=== PATIENT | female | born 1985 | race Caucasian/White ===

== ENCOUNTER → 2020-05-27 17:20 | Outpatient (CLI) | payer OTHER, SELFPAY ==
[2020-05-27 14:57] VITALS: BMI 23.6
[2020-06-01 16:18] LABS: HPV APTIMA, High Risk Negative (Negative)
== END ==
PROVIDERS: Referring Provider Obstetrics & Gynecology; Visit Provider Obstetrics & Gynecology
DX: Z12.4 Encounter for screening for malignant neoplasm of cervix (principal)
CPT/HCPCS: 87624; 88175; G0145

== ENCOUNTER → 2023-09-27 | Outpatient (CLI) | payer OTHER, SELFPAY ==
[2023-09-27 12:57] LABS: Absolute Lymphocyte Count 1.72 X10^3/uL (0.83-4.51); Absolute Neutrophil Count 7.5 X10^3/uL (2.0-7.7); Basophil# 0.06 X10^3/uL; Basophil% 0.6 % (0-1); Eosinophil# 0.12 X10^3/uL; Eosinophils% 1.2 % (0-5); Hematocrit 44.2 % (37-47); Hemoglobin 14.8 g/dL (12.0-15.0); Lymphocyte # 1.72 X10^3/ul (0.83-4.51); Lymphocyte % 17.4 % (19-41); Mean Corp Hgb Conc 33.5 g/dL (32-36); Mean Corpuscular Hgb 29.4 pg (27.0-32.0); Mean Corpuscular Volume 87.9 fL (81-99); Mean Platelet Vol. 9.6 fl (6.2-12.0); Monocyte# 0.46 X10^3/uL; Monocyte% 4.7 % (0-10); NRBC Flagged by Analyzer 0 % (0-5); Neutrophil # 7.51 X10^3/uL (2.7-7.7); Neutrophil % 75.9 % (47-70); Platelet Count 387 K/mm3 (150-450); RBC Distribution Width CV 12.9 % (11.6-14.6); RBC Distribution Width SD 41.4 fl (35.1-43.9); Red Blood Count 5.03 M/mm3 (4.2-5.4); White Blood Count 9.9 K/mm3 (4.4-11.0)
[2023-09-27 13:32] LABS: Cholesterol 189 mg/dL (200); Glucose 90 mg/dL (74-106); High Density Lipoprotein 112 mg/dL; Thyroid Stim Hormone (TSH) 0.72 uIU/mL (0.358-3.74); Triglycerides 110 mg/dL; Very Low Density Lipoprotein 22 mg/dL (5-40)
== END | disposition home or self-care (01) ==
PROVIDERS: Referring Provider Advanced Practice Midwife; Visit Provider Advanced Practice Midwife
DX: Z01.419 Encounter for gynecological examination (general) (routine) without abnormal findings (principal); Z13.29 Encounter for screening for other suspected endocrine disorder; Z13.220 Encounter for screening for lipoid disorders
CPT/HCPCS: 36415; 80061; 82947; 84443; 85025

== ENCOUNTER → 2025-04-12 | Outpatient (CLI) | payer OTHER, SELFPAY ==
[2025-04-16 12:09] LABS: HPV APTIMA, High Risk Negative (Negative)
== END | disposition home or self-care (01) ==
LOC: BWCLAB 11:23
PROVIDERS: Visit Provider Nurse Practitioner Family
DX: Z12.4 Encounter for screening for malignant neoplasm of cervix (principal); R53.83 Other fatigue
CPT/HCPCS: 36415; 84403; 84439; 87624; 88175; G0145

== ENCOUNTER → 2025-05-01 | Outpatient (CLI) | payer OTHER, SELFPAY ==
--- NOTE | 2025-05-01 17:04 | BI_ITS ---
EXAM: SCRN MAMM (CAD)W/[place] BILAT DATE: 05/01/2025 CLINICAL HISTORY: F, Age 39 y/o , SCREENING TECHNIQUE: SCRN MAMM (CAD)W/[place] BILAT COMPARISON: None available FINDINGS: TISSUE DENSITY: The breasts are extremely dense, which lowers the sensitivity of mammography. Bilateral Breast Mammographic Findings: No suspicious masses, calcifications or other abnormalities are identified. BI/SCRN MAMM (CAD)W/[place] BILAT IMPRESSION: No mammographic evidence of malignancy in either breast OVERALL FINAL ASSESSMENT BI-RADS 1: NEGATIVE. RECOMMENDATION: Routine annual follow-up in 1 Year A letter with findings and recommendations will be mailed to the patient. Reading Location: [id number]
--- OUTSIDE RECORDS SUMMARY | 2025-05-02 07:27 | XMS RPT_ITS | CCD ---
Author Organization [facility] Inform ion Partnership [facility] Care Team Providers Care Composing Machine Operator Name Role Phone Unavailable Primary Care Provider Unavailabl e SELF Referring Unavailable Care Physician, No Primary Primary Care Provider Unavailable Care Physician, No Primary Referring Provider Un available Bill PHILLIPS-CRegina Attending Provider [phone] Care Physician, No Primary Primary Care Unava ilable Care Physician, No Primary Referring Unava ilRegina Whiting Attending Unavailable Care Physician, No Primary Primary Care Unava ilable Regina Khan Attending Unavailable Regina Khan Referring Unavailable Care Physician, No Primary Primary Care Unava ilRegina Whiting Attending Unavailable Medications Current Medications Medication Drug Class(es) Dates Sig (Normalized) Sig (Original) [id number] actuat albuterol 0.09 mg/actuat metered dose inhaler (2 sources) beta2-Adrenergic Agonist Start: 11-06-2016 take 2 puff(s) by inhalation every four hours as needed for wheezing albuterol HFA (PROAIR HFA) 90 mcg/actuation inhaler Indications: Sinobronchitis Inhale 2 Puffs as instructed every 4 hours as needed for Wheezing/Shortness of Breath. 1 Inhaler 0 11/06/2016 Active Comment on above: Inhale 2 Puffs as in structed every 4 hours as needed for Wheezing/Shortness of Breath. Ascorbic Acid-Elderberry Fruit (Airborne (Elderberry)) 100-50 mg tablet,chewable (3 sources) Start: 12-18-2022 Ascorbic Acid-Elderberry Fruit (Airborne (Elderberry)) 100-50 mg tablet,chewable Active {tbl} PO December 18, 2022 12:00am Start: 12-18-2022 Ascorbic Acid- Elderberry Fruit (Airborne (Elderberry)) 100-50 mg tablet,chewable Active TABLET PO December 17, 2022 11:00pm benzonatate 100 mg oral capsule (2 sources) Non-narcotic Antitussive Start: 11-06-2016 take 2 capsules by mouth three times daily as needed benzonatate (TESSALON PERLE) 100 mg capsule Indications: Sinobronchitis Take 2 capsules by mouth three times daily as needed. 30 capsule 0 11/06/2016 Active Comment on above: Take 2 capsules by m outh three times daily as needed. cephalexin 500 mg oral capsule (1 source) Cephalosporin Antibacterial Start: 12-02-2023 End: 12-07-2023 take 1 capsule by mouth four times daily cephALEXin (KEFLEX) 500 mg capsule Indications: Cellulitis of hand, left Take 1 capsule by mouth four times daily for 5 days. 20 capsule 0 12/02/2023 12/07/2023 Active Comment on above: Take 1 capsule by mo ut four times daily for 5 days. Drospirenone-E.Es tradiol-Lm.Fa (20 sources) Progestin, Estrogen Start: 04-10-2025 Drospirenone-E.Estr adiol-Lm.Fa 3-0.02-0.451 mg (24) (4) tablet Active 0 .ROUTE .COMPLEX 84 3 April 10, 2025 7:33am TAKE 1 TABLET DAILY Start: 03-28-2024 End: 04-10-2025 Drospirenone-E.Estradiol-Lm. Fa 3-0.02-0.451 mg (24) (4) tablet Discontinued 0 .ROUTE .COMPLEX 84 3 March 28, 2024 3:03pm April 10, 2025 7:34am TAKE 1 TABLET DAILY Start: 02-28-2024 End: 03-28-2024 Drospirenone-E.Estradiol-Lm. Fa 3-0.02-0.451 mg (24) (4) tablet Discontinued 0 .ROUTE .COMPLEX 84 February 28, 2024 10:23am March 28, 2024 3:03pm TAKE 1 TABLET DAILY Start: 02-25-2023 End: 02-28-2024 Drospirenone-E.Estradiol-Lm. Fa 3-0.02-0.451 mg (24) (4) tablet Discontinued 0 .ROUTE .COMPLEX 84 February 25, 2023 8:12am February 28, 2024 10:23am TAKE 1 TABLET DAILY Start: 02-25-2023 Drospirenone-E .Estradiol-Lm.Fa Active 0 .ROUTE .COMPLEX 84 February 25, 2023 7:12am TAKE 1 TABLET DAILY Start: 12-01-2022 End: 02-25-2023 Drospirenone-E.Estradiol-Lm. Fa 3-0.02-0.451 mg (24) (4) tablet Discontinued 0 .ROUTE .COMPLEX 84 0 December 01, 2022 6:48am February 25, 2023 8:12am TAKE 1 TABLET DAILY Start: 12-01-2022 End: 02-25-2023 Drospirenone-E.Estradiol-Lm. Fa Discontinued 0 .ROUTE .COMPLEX 84 December 01, 2022 5:48am February 25, 2023 7:12am TAKE 1 TABLET DAILY Start: 09-23-2021 End: 12-01-2022 Drospirenone-E.Estradiol-Lm. Fa 3-0.02-0.451 mg (24) (4) tablet Discontinued 0 .ROUTE .COMPLEX 84 September 23, 2021 4:45pm December 01, 2022 6:48am TAKE 1 TABLET DAILY Start: 09-23-2021 End: 12-01-2022 Drospirenone-E.Estradiol-Lm. Fa Discontinued 0 .ROUTE .COMPLEX 84 September 23, 2021 3:45pm December 01, 2022 5:48am TAKE 1 TABLET DAILY Start: 07-01-2021 End: 09-23-2021 Drospirenone-E.Estradiol-Lm. Fa 3-0.02-0.451 mg (24) (4) tablet Discontinued 0 .ROUTE .COMPLEX 84 July 01, 2021 3:37pm September 23, 2021 4:46pm TAKE 1 TABLET DAILY Start: 07-01-2021 End: 09-23-2021 Drospirenone-E.Estradiol-Lm. Fa Discontinued 0 .ROUTE .COMPLEX 84 July 01, 2021 2:37pm September 23, 2021 3:46pm TAKE 1 TABLET DAILY Start: 07-16-2020 End: 07-01-2021 Drospirenone-E.Estradiol-Lm. Fa 3-0.02-0.451 mg (24) (4) tablet Discontinued 0 .ROUTE .COMPLEX 84 July 16, 2020 9:22am July 01, 2021 3:37pm TAKE 1 TABLET DAILY Start: 07-16-2020 End: 07-01-2021 Drospirenone-E.Estradiol-Lm. Fa Discontinued 0 .ROUTE .COMPLEX 84 July 16, 2020 8:22am July 01, 2021 2:37pm TAKE 1 TABLET DAILY Start: 02-01-2020 End: 07-16-2020 Drospirenone-E.Estradiol-Lm. Fa 3-0.02-0.451 mg (24) (4) tablet Discontinued 0 .ROUTE .COMPLEX 84 February 01, 2020 8:15am July 16, 2020 9:22am TAKE 1 TABLET DAILY Start: 02-01-2020 End: 07-16-2020 Drospirenone-E.Estradiol-Lm. Fa Discontinued 0 .ROUTE .COMPLEX 84 February 01, 2020 7:15am July 16, 2020 8:22am TAKE 1 TABLET DAILY Start: 09-04-2019 End: 02-01-2020 Drospirenone-E.Estradiol-Lm. Fa 3-0.02-0.451 mg (24) (4) tablet Discontinued 1 {tbl} PO DAILY 84 September 04, 2019 1:24pm February 01, 2020 8:15am Start: 09-04-2019 End: 02-01-2020 take 1 tablet by mouth once daily Drospirenone-E.Estradiol-Lm.Fa Discontin ued 1 TABLET PO DAILY September 04, 2019 12:24pm February 01, 2020 7:15am Start: 03-31-2019 End: 09-04-2019 Drospirenone-E.Estradiol-Lm. Fa 3-0.02-0.451 mg (24) (4) tablet Discontinued 0 .ROUTE .COMPLEX 84 March 31, 2019 9:37am September 04, 2019 1:25pm TAKE 1 TABLET DAILY Start: 03-31-2019 End: 09-04-2019 Drospirenone-E.Estradiol-Lm. Fa Discontinued 0 .ROUTE .COMPLEX 84 March 31, 2019 8:37am September 04, 2019 12:25pm TAKE 1 TABLET DAILY Start: 12-26-2018 End: 03-31-2019 Drospirenone-E.Estradiol-Lm. Fa (Beyaz) 3-0.02-0.451 mg (24) (4) tablet Discontinued 1 {tbl} PO DAILY 84 3 December 26, 2018 10:11am March 31, 2019 9:38am Start: 12-26-2018 End: 03-31-2019 Drospirenone-E.Estradiol-Lm. Fa (Beyaz) 3-0.02-0.451 mg (24) (4) tablet Discontinued 1 TABLET PO DAILY 84 December 26, 2018 9:11am March 31, 2019 8:38am Start: 07-21-2018 End: 12-26-2018 Drospirenone-E.Estradiol-Lm. Fa (Beyaz) 3-0.02-0.451 mg (24) (4) tablet Discontinued 1 {tbl} PO DAILY 84 1 July 21, 2018 1:00am December 26, 2018 10:11am Start: 07-21-2018 End: 12-26-2018 Drospirenone-E.Estradiol-Lm. Fa (Beyaz) 3-0.02-0.451 mg (24) (4) tablet Discontinued 1 TABLET PO DAILY 84 July 21, 2018 12:00am December 26, 2018 9:11am Start: 10-13-2016 drospirenone-e .estradiol-lm.FA 3-0.02-0.451 mg (24) (4) tab Multivitamin preparation (1 source) Start: 09-23-2021 take 1 tablet by mouth once daily Multivitamin Active 1 TABLET PO DAILY September 23, 2021 12:00am Multivitamin tablet (2 sources) Start: 09-23-2021 Multivitamin t ablet Active 1 {tbl} PO DAILY September 23, 2021 1:00am predniSONE 10 mg oral tablet (1 source) Start: 03-04-2024 End: 03-17-2024 take 6 tablets by mouth once daily, then take 4 tablets by mouth once daily, then take 3 tablets by mouth once daily, then take 2 tablets by mouth once daily, then take 1 tablet by mouth once daily predniSONE (DELTASONE) 10 mg tablet Indications: Dermatitis Take 6 tablets by mouth once daily for 1 day, THEN 4 tablets once daily for 3 days, THEN 3 tablets once daily for 3 days, THEN 2 tablets once daily for 3 days, THEN 1 tablet once daily for 3 days. 36 tablet 0 03/04/2024 03/17/2024 Active triamcinolone acetonide 1 mg/ml topical cream (1 source) Corticosteroid Start: 03-04-2024 triamcinolone acetonide (KENALOG) 0.1 % cream Indications: Dermatitis Apply to affected area two times a day as needed. 80 g 0 03/04/2024 Active Problems Problem Classification Problem Date Documented Da te Episodic/Chronic Allergic reactions (1 source) Inflammatory dermatosis; Translations: [Dermatitis, unspecified] 03-04-2024 Episodic Malaise and fatigue (1 source) Other fatigue; Translations: [Other fatigue] Onset: 04-12-2025 Episodic Other screening for suspected conditions (not mental disorders or infectious disease) (3 sources) Encounter for screening mammogram for malignant neoplasm of breast; Translations: [Encounter for screening for malignant neoplasm of cervix] Onset: 04-12-2025 Episodic Skin and subcutaneous tissue infections (1 source) Cellulitis of left hand; Translations: [Cellulitis of left upper limb] 12-02-2023 Episodic Results Test Name Value Interpretation Reference Range Facility PAP IG HPV APTIMA 16/18,45on 04-16-2025 ADEQ Comment Normal . [facility] Comment on above: Order Comment: Speci men Comment: [id number] Specimen Comment: No. of containers..01 ThinPrep Vial Result Comment: Sati sfactory for evaluation. No endocervical component is identified. Performed By: #### L 7400.0280 #### [facility] [address] [place], [address] COMM . Normal . [facility] Comment on above: Order Comment: Speci men Comment: [id number] Specimen Comment: No. of containers..01 ThinPrep Vial Performed By: #### L 7400.0280 #### [facility] [address] [place], [place], [id number] COMMENT Comment Normal . [facility] Comment on above: Order Comment: Speci men Comment: [id number] Specimen Comment: No. of containers..01 ThinPrep Vial Result Comment: This liquid based ThinPrep(R) pap test was screened with the use of an image guided system. Performed By: #### L 7400.0280 #### [facility] [address] [place], [place], [id number] DIAG Comment Normal . [facility] Comment on above: Order Comment: Speci men Comment: [id number] Specimen Comment: No. of containers..01 ThinPrep Vial Result Comment: NEGA TIVE FOR INTRAEPITHELIAL LESION OR MALIGNANCY. Performed By: #### L 7400.0280 #### [facility] [address] [place], [address] HPV APTIMA, HR Negative Normal Negative [facility] Comment on above: Order Comment: Speci men Comment: [id number] Specimen Comment: No. of containers..01 ThinPrep Vial Result Comment: This nucleic acid amplification test detects fourteen high- risk HPV types (16,18,31,33,35,39,45,51,52,56,58,59,66,68) without differentiation. Performed By: #### L 7400.0280 #### [facility] [address] [place], [place], [id number] HPV Yamini Rfx Comment Normal . [facility] Comment on above: Order Comment: Speci men Comment: [id number] Specimen Comment: No. of containers..01 ThinPrep Vial Result Comment: Crit eria not met, HPV Genotype not performed. Performed at: - [facility] [id number] Ict Managers: Bárbara Woods MD, Phone: [phone] Performed at: =G - [facility] [address] [id number] Ict Managers: Bárbara Wodos MD, Phone: [phone] Performed By: #### L 7400.0280 #### [facility] [address] [place], [place], [address] PAPSMR Comment Normal . [facility] Comment on above: Order Comment: Speci men Comment: [id number] Specimen Comment: No. of containers..01 ThinPrep Vial Result Comment: The Pap smear is a screening test designed to aid in the detection of premalignant and malignant conditions of the uterine cervix. It is not a diagnostic procedure and should not be used as the sole means of detecting cervical cancer. Both false-positive and false-negative reports do occur. Performed By: #### L 7400.0280 #### [facility] [address] [place], [place], [id number] PERFORM Comment Normal . [facility] Comment on above: Order Comment: Speci men Comment: [id number] Specimen Comment: No. of containers..01 ThinPrep Vial Result Comment: Max Mcnair, Dermatology Technician (ASCP) Performed By: #### L 7400.0280 #### [facility] [address] [place], [place], [id number] Cervical or vaginal specimen microscopic examination by liquid based cytology (reportOrdered By: eRgina Khan on 04-12-2025 Cytology report Cyto stain.thin prep Doc (Cvx/Vag) Comment . [facility] Comment on above: Criteria not met, HP V Genotype not performed.Performed at: [address] [id number] Director: Bárbara Woods MD, Phone: [phone] at: =[address] [id number] Director: Bárbara Woods MD, Phone: [phone] Cervical or vagninal specime n microscopic examination by cytology stain (reported asOrdered By: Regina Khan on 04-12-2025 Cytology report Cyto stain Doc (Cvx/Vag) Comment . [facility] Comment on above: The Pap smear is a s creening test designed to aid in thedetection of premalignant and malignant conditions of theuterine cervix. It is not a diagnostic procedure andshould not be used as the sole means of detecting cervicalcancer. Both false-positive and false-negative reports dooccur. Detection in cervical specim en of any of human papilloma virus (HPV) 16, 18, 31, 33,Ordered By: Regina Khan on 04-12-2025 HPV 16+18+31+33+35+39+45+51 +52+56+58+59+66+68 DNA Probe+sig amp Ql (Cvx) Negative Negative [facility] Comment on above: This nucleic acid am plification test detects fourteen high-risk HPV types (16,18,31,33,35,39,45,51,52,56,58,59,66,68)without differentiation. L509.3001on 04-12-2025 Testosterone [Mass/Vol] 10.40 ng/dL Normal [facility] Comment on above: Performed By: #### L 509.3001, L506.0400 #### [facility] [address] [place], [address] Laboratory - Chemistry and C hemistry - challengeOrdered By: Regina Khan on 04-12-2025 Testosterone [Mass/Vol] 10.40 ng/dL [facility] - CytologyOrdered By: Regina Khan on 04-12-2025 Dermatology Technician Cyto stain Nom (Cvx/Vag) [ID] Comment . [facility] Comment on above: Leandro Mcnair Cytolog ist (ASCP) Laboratory - Miscellaneous t estsOrdered By: Regina Khan on 04-12-2025 Service comment (Unsp spec) [Interp] . . [facility] No Panel InformationOrdered By: Regina Khan on 04-12-2025 Pap Smear Specimen Adequacy Comment . [facility] Comment on above: Satisfactory for deb luation. No endocervical component is identified. 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 Developer Required: No Is patient in pain?: No Allergies No Known Allergies Allergy (Verified 04/12/25 10:50) Medications ???Medication ???Instructions ???Recorded ???Confirmed ???Type multivitamin 1 tab PO DAILY 09/23/21 04/12/25 H istory ascorbic acid 100 mg-elderberry tab PO 12/18/22 04/12/25 History fruit 50 mg chewable tablet (Airborne (elderberry)) drospiren-e.estrad-l .mefol 3 See Rx Instructions .Route 5 04/12/25 Rx mg-0.02 mg-0.451 mg(24)/0.451 .COMPLEX #84 tabs mg(4)tablet Is last menstrual period known: Yes Last Menstrual Period: 04/02/25 Post menopausal: No Patient : No : No Control Method: ocp PFSH Family History Unknown Colon cancer Kidney disease Grandfather Diabetes Social History Smoking Status: Never smoker alcohol intake: never substance use type: does not use caffeine: Yes what type of physical activity do you participate in: walking and aerobics frequency: 1-2 times per week seatbelt use: always do you feel safe at home: Yes additional social history: [employer]- Student 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 She reports no issues or concerns. She is utilizing OCP an doing well with this. Would like to continue. She is interested in testosterone testing. Her mother is going through testing as well and they were questioning a genetic component. Otherwise asymptomatic. Last PAP: 2019; normal. HPV neg. History of abnormal PAP: no Last mammogram: due History of abnormal mammogram: n/a Colon cancer screening: age 44 Other preventative health care screenings: no PCP Female Reproductive History Last Menstrual Period: 04/02/25 Cycle Length: 21-35 Bleeding Duration: 3 Questions: metrorrhagia: No, sexually active: Yes, dyspareunia: No and PCB: No ROS Const Constitutional: Denies chills, fatigue, fever(s), headache(s) or weight loss Eyes Eyes: Denies change in vision ENT ENT: Denies dizziness Cardio Card: Denies chest pain at rest or palpitations Resp Resp: Denies cough or dyspnea GI GI: Denies abdominal pain, constipation or nausea : Denies difficulty voiding, dysuria, hematuria, nipple discharge, pelvic pain, prolapse symptoms, urinary incontinence, vaginal discharge, vaginal dryness, vaginal odor or vaginal pruritus Skin Skin/Breast: Denies alopecia, rash, breast mass, breast pain, breast skin changes or nipple discharge Neuro Neuro: Denies dizziness Psych Psych: Denies anxiety or depression Endo Endo: Denies cold intolerance, excessive sweating or heat intolerance Exam Const General: cooperative, healthy appearing, no acute distress and well developed Orientation: alert, oriented to person and oriented to place HENCO Head: normal to inspection Neck Neck: normal visual inspection Thyroid: thyroid normal Lymphatic: no lymphadenopathy noted Chest Breast inspection: normal inspection of the breasts and normal inspection of the axillae Breast palpation: normal palpation of the breasts, normal palpation of the axillae and no axillary lymphadenopathy Resp Effort Inspection: normal respiratory effort GI Palpation: soft, no masses and nontender Rectal Exam: deferred External Female Exam: normal external appearance and normal appearance of the urethra Urethra: normal appearance of the urethra and normal palpation Speculum Exam - Vagina: normal appearance of the vagina and normal vaginal discharge Speculum Exam - Cervix: normal appearance of the cervix Bimanual Exam- Vagina Uterus: normal bimanual exam, uterine size normal, uterine shape normal and non-tender Bimanual Exam- Adnexa, other: normal adnexae, no masses, normal and non-tender Pelvic Support: normal Neuro General: patient alert and patient oriented x3 Psych Affect: normal affect Coding Level of Care Code Established Pt Off vis,est,prev 40-64yrs Patient Type Established Dana (more content not included)... Normal [facility] T4 Free Directon 04-12-2025 T4 FREE DIRECT 1.00 ng/dL Normal 0.76-1.46 [facility] Comment on above: Performed By: #### L 509.3001, L506.0400 #### [facility] [address] [place], [address] CNOVon 03-04-2024 CNOV Office Visit ([facility]) MIRZA GARCIA ([id number]) 1985 F Date Time Provider Department 03/04/24 8:50 AM YESSI JACOBSON During your visit today, we recorded the following information about you: Pulse Respiration Blood pressure Weight 65/minute 16/minute 151/87 63.5 kg Yessi Jacobson, MANAGER CHILD.PROOF OPERATOR 03/04/2024 9:34 AM Signed [facility] PATIENT INFO CONTACT DERMATITIS OVERVIEW Dermatitis is defined as an inflammation of the skin. Contact dermatitis refers to dermatitis that is caused by contact between the skin and a substance. The substance can be an allergen (a substance that provokes an allergic reaction) or an irritant (a substance that damages the skin). Irritants are responsible for about 80 percent of cases of contact dermatitis. In most cases, self-care measures and drug therapy can control the symptoms and prevent complications of contact dermatitis. IRRITANT CONTACT DERMATITIS Irritant contact dermatitis occurs when the skin comes in direct contact with a substance that physically, mechanically, or chemically irritates the skin, causing the normal skin barrier to be disrupted. Cause -- The most common causes of irritant dermatitis are products used on a daily basis, including soap, cleansers, and rubbing alcohol. People with other skin conditions, dry skin, and light-colored or fair skin are at greatest risk, although anyone can develop irritant dermatitis. Symptoms -- Mild irritants cause redness, dryness, fissures (small cracks), and itching. Strong irritants may cause swelling, oozing, tenderness, or blisters. The hands are commonly affected, often between the fingers. Irritant dermatitis can also affect the face, especially the thin skin of the eyelids. Diagnosis -- The diagnosis of irritant contact dermatitis is usually based upon a person's history and physical examination. In some cases, a patch test (applying a small amount of a substance to the skin) may be recommended to determine if the dermatitis is allergic or irritant-type. Patch testing should be done by a solar installation crew supervisor or efficiency manager who is trained in this procedure. Treatment -- The goal of treatment of irritant contact dermatitis is to restore the normal skin barrier and protect the skin from future injury. Reducing exposure to known irritants is essential. In some cases, simply reducing the use of soap and using an emollient cream or ointment completely alleviates symptoms. Wearing gloves when working with irritants may help as well. In more severe cases, topical corticosteroids (steroids) may be recommended. Steroid creams and ointments are available in a variety of strengths (potencies); the least potent are available in the [place] without a prescription (eg, hydrocortisone 1 percent cream). More potent formulations require a prescription. Steroid treatments for contact dermatitis are most effective when applied and covered with a barrier, such as plastic wrap, a dressing (eg, Telfa), cotton gloves, or petroleum jelly. Oral steroids (eg, prednisone) may be used briefly to treat severe dermatitis, but are not recommended for long-term treatment of irritant contact dermatitis. ALLERGIC CONTACT DERMATITIS Allergic contact dermatitis occurs when the skin comes in direct contact with an allergen. This activates the body's immune system, which triggers inflammation. Allergic contact dermatitis can occur after being exposed to a new product or after using a product for months or years. Common allergens -- Poison vielka, poison oak, and poison sumac contain an oil called urushiol, which is the most common cause of allergic contact dermatitis. Ginkgo fruit and the skin of mangos also contain urushiol and can cause allergic contact dermatitis. Other common allergens include nickel in jewelry, perfumes and cosmetics, components of rubber, nail honduran, and chemicals in shoes (both leather and synthetic). Allergic contact dermatitis can also be triggered by certain medications, including hydrocortisone cream, antibiotic creams (eg, Neosporin?, Bacitracin?), benzocaine, and thimerosal. Laundry detergents are an uncommon cause of allergic contact dermatitis. Symptoms -- Symptoms include intense itching and a red raised rash. The rash is usually limited to areas that were in direct contact with the allergen, but a rash can appear in other areas of the body, if the allergen was transferred to those areas on a person's hands. Washing the allergen away with soap and water can usually prevent this spread. The rash typically appears within 12 to 48 hours of exposure to the allergen, although in some cases it may not appear for up to two weeks. Less commonly, the rash persists for months or years, which makes it difficult to identify the cause of the reaction. Diagnosis -- The diagnosis of allergic contact dermatitis i (more content not included)... Normal [facility] CNOVon 12-02-2023 CNOV Office Visit (ERIC) MIRZA GARCIA ([id number]) 1985 F Date Time Provider Department 12/02/23 5:30 PM MEGHANN LUNDBERG During your visit today, we recorded the following information about you: Temperature Pulse Respiration Blood pressure 98.5 degrees 74/minute 16/minute 122/70 Weight Height 64.9 kg 1.651 m Meghann Lundberg PA-C 12/02/2023 5:51 PM Signed Subjective Mirza Ross Jose is a 38 year old female with no significant past medical history who presents [facility] today for evaluation of a red spot on the left side of her hand that she noticed yesterday. She states that it has been getting significantly larger and tender. She states that it feels warm. She denies any injury or trauma. Review of Systems Constitutional: Negative for chills, diaphoresis and fever. Skin: Positive for wound (left hand red spot). All other systems reviewed and are negative. Objective Ht 165.1 cm (5' 5) Wt 64.9 kg (143 lb 1.3 oz) LMP 10/06/2016 BMI 23.81 kg/m? Physical Exam Vitals reviewed. Constitutional: General: She is not in acute distress. Appearance: Normal appearance. She is normal weight. She is not ill-appearing or toxic-appearing. Comments: The patient appears to be non-toxic, in no acute distress, and resting comfortably on the table. HENT: Head: Normocephalic and atraumatic. Eyes: Extraocular Movements: Extraocular movements intact. Musculoskeletal: General: Normal range of motion. Cervical back: Normal range of motion. Skin: General: Skin is warm and dry. Findings: Erythema (3 cm x 2 cm area on the medial left hand with central 1 cm x 1 cm darker, mildly indurated area) present. No rash. Neurological: General: No focal deficit present. Mental Status: She is alert and oriented to person, place, and time. Mental status is at baseline. Psychiatric: Mood and Affect: Mood normal. Behavior: Behavior normal. Thought Content: Thought content normal. Assessment and Plan Examination of the left hand reveals a 3 cm x 2 cm area on the medial left hand with a central 1 cm x 1 cm darker, mildly indurated area. There is mild tenderness. No fluctuance. No drainage. Exam is concerning for cellulitis. Patient counseled regarding suspected diagnosis and given prescription for Keflex. Advised to follow-up with primary care as needed for any new or worsening symptoms. ASSESSMENT/PLAN: 1. Cellulitis of hand, left - ICD9: 682.4, ICD10: L03.114 - CEPHALEXIN 500 MG CAPSULE Medical Decision Making: Problems: Low: Acute, uncomplicated illness or injury Risk: Minimal: Minimal risk from testing/treatment Moderate: Drug management Medical Decision Making Level: 3 - Low I spent a total of 20 minutes on the date of the service which included preparing to see the patient, [id number] patient care, completing clinical documentation, performing a medically appropriate examination, counseling and educating the patient/family/careg iver, and ordering medications, tests, or procedures. JESUS Wakefield Ariana P, PA-C 12/02/2023 5:45 PM Signed [facility] PATIENT INFO SKIN INFECTION OVERVIEW Cellulitis is an infection of the skin and soft tissue of the skin. The infection is usually caused by bacteria that normally live on the skin, such as staphylococci (Staph) or streptococci (Strep). The infection develops when there is a break in the skin, such as a wound or injury, which may be minor. This allows bacteria to enter the skin and grow, causing infection and swelling. Most cases of cellulitis are mild and heal completely with antibiotic treatment. However, the infection can become severe and cause a bodywide infection if left untreated. It is important to seek medical care promptly if you could have a skin infection. SKIN INFECTION RISK FACTORS Certain conditions increase the risk of developing cellulitis. These include: Recent injury to the skin (a wound, abrasion, cut, recent shaving, or injection drug use) Swelling of the skin due to radiation therapy Current skin infection, such as athlete's foot or impetigo Accumulation of fluid (edema) due to poor circulation, heart failure, liver disease, or past surgery to remove lymph nodes Being overweight Chronic skin conditions, such as eczema or psoriasis However, cellulitis can also develop in people who have no known risk factors. SKIN INFECTION SYMPTOMS Cellulitis -- The most common symptom of cellulitis is pain or tenderness. Other cellulitis symptoms can include swelling, warmth, and redness in a distinct area of skin. These symptoms usually worsen and the redness may expand over the course of a few days. The skin is usually smooth and shiny rather than raised or bumpy. Fever and chills are not common. The most common areas of the body for cellulitis to develop include the legs an (more content not included)... Normal [facility] Absolute lymphocyte countOrd ered By: Abigail Ardon on 09-27-2023 Lymphocytes Auto (Unsp spec) [#/Vol] 1.72 10*3/uL 0.83-4.51 [facility] Basophil percentageOrdered B y: Abigail Ardon on 09-27-2023 Basophils/100 WBC (Bld) 0.6 % 0-1 [facility] Cholesterol [Mass/Vol] 189 mg/dL <200 [facility] Comment on above: <200 mg/dL Desirable 200-240 mg/dL Borderline >240 mg/dL High Risk Eosinophils/100 WBC (Bld) 1.2 % 0-5 [facility] Glucose [Mass/Vol] 90 mg/dL 74-106 [facility] Neutrophils (Bld) [#/Vol] 7.5 10*3/uL 2.0-7.7 [facility] Neutrophils/100 WBC (Bld) 75.9 % 47-70 [facility] Triglyceride [Mass/Vol] 110 mg/dL <199 [facility] Comment on above: The drugs N-Acetylcy steine and Metamizole may falsely depress this assay.Serum Triglycerides Reference Interval Normal <150 mg/dL Borderline high 150 - 199 mg/dL High 200 - 499 mg/dL Very High > or = 500 mg/dL WBC (Bld) [#/Vol] 9.9 10*3/uL 4.4-11.0 [facility] Blood erythrocytes count (nu mber/volume)Ordered By: Abigail Ardon on 09-27-2023 RBC (Bld) [#/Vol] 5.03 10*6/uL 4.2-5.4 [facility] Blood hemoglobin measurement (mass/volume)Ordered By: Abigail Ardon on 09-27-2023 Hemoglobin (Bld) [Mass/Vol] 14.8 g/dL 12.0-15.0 [facility] Blood lymphocytes/100 leukoc ytesOrdered By: Abigail Ardon on 09-27-2023 Lymphocytes/100 WBC (Bld) 17.4 % 19-41 [facility] Blood monocytes/100 leukocyt esOrdered By: Abigail Ardon on 09-27-2023 Monocytes/100 WBC (Bld) 4.7 % 0-10 [facility] Blood platelet mean volumeOr dered By: Abigail Ardon on 09-27-2023 Platelet mean volume (Bld) [Entitic vol] 9.6 fL 6.2-12.0 [facility] Determination of erythrocyte mean corpuscular volume (MCV)Ordered By: Abigail Ardon on 09-27-2023 MCV (RBC) [Entitic vol] 87.9 fL 81-99 [facility] Hematocrit Auto (Bld) [Volum e fraction]Ordered By: Abigail Ardon on 09-27-2023 Hematocrit (Bld) [Volume fraction] 44.2 % 37-47 [facility] - Hematology and Cell countsOrdered By: Abigail Ardon on 09-27-2023 Erythrocyte distribution width (RBC) [Entitic vol] 41.4 fL 35.1-43.9 [facility] Erythrocyte distribution width (RBC) [Ratio] 12.9 % 11.6-14.6 [facility] Immature granulocytes/100 WBC (Bld) 0.200 % 0.0-0.9 [facility] Comment on above: IG% - Immature Granu locytes (promyelocytes, myelocytes and metamyelocytes) > 1% indicates that a LEFT SHIFT is Present. MCH (RBC) [Entitic mass] 29.4 pg 27.0-32.0 [facility] Nucleated RBC/100 WBC (Bld) [Ratio] 0 % 0-5 [facility] MCHC Auto (RBC) [Mass/Vol]Or dered By: Abigail Ardon on 09-27-2023 MCHC (RBC) [Mass/Vol] 33.5 g/dL 32-36 [facility] No Panel InformationOrdered By: Abigail Ardon on 09-27-2023 Thyroid Stimulating Hormone (TSH) 0.72 uIU/mL 0.358-3.74 [facility] Platelets bldOrdered By: Roberto Ardon on 09-27-2023 Platelets (Bld) [#/Vol] 387 10*3/uL 150-450 [facility] Serum or plasma cholesterol in HDL measurement (mass/volume)Ordered By: Abigail Ardon on 09-27-2023 Cholesterol in HDL [Mass/Vol] 112 mg/dL >40 [facility] Comment on above: The drugs N-Acetylcy steine and Metamizole may falsely depress this assay. Reference Range HDL <40 mg/dL Low HDL Cholesterol HDL >or= 60 mg/dL High HDL Cholesterol Serum or plasma cholesterol in VLDL measurement (mass/volume)Ordered By: Abigail Ardon on 09-27-2023 Cholesterol in VLDL [Mass/Vol] 22 mg/dL 5-40 [facility] Serum or plasma low density lipoprotein (LDL) cholesterol measurement (mass/volume)Ordered By: Abigail Ardon on 09-27-2023 Cholesterol in LDL [Mass/Vol] 55 mg/dL 0-130 [facility] Vital Signs Date Time Vital Sign Value Performing Clinician Facility 04-12-2025 10:48-0400 Body height 165.1 cm No Primary Care Physician [facility] 04-12-2025 10:48-0400 Body mass index (BMI) [Ratio] 23.7 kg/m2 No Primary Care Physician [facility] 04-12-2025 10:48-0400 Body weight 64.63 kg No Primary Care Physician [facility] 04-12-2025 10:48-0400 Diastolic blood pressure 88 mm[Hg] No Primary Care Physician [facility] 04-12-2025 10:48-0400 Systolic blood pressure 135 mm[Hg] No Primary Care Physician [facility] 03-04-2024 09:09-0400 Body mass index (BMI) [Ratio] 23.28 kg/m2 Yessi Jacobson APRN.PROOF OPERATOR Work Phone: [facility] 03-04-2024 09:09-0400 Body weight 63.45 kg Yessi Jacobson APRN.PROOF OPERATOR Work Phone: [facility] 03-04-2024 09:09-0400 Diastolic blood pressure 87 mm[Hg] Yessi Jacobson APRN.PROOF OPERATOR Work Phone: [facility] 03-04-2024 09:09-0400 Heart rate 65 /min Yessi Jacobson APRN.PROOF OPERATOR Work Phone: [facility] 03-04-2024 09:09-0400 Respiratory rate 16 /min Yessi Jacobson APRN.PROOF OPERATOR Work Phone: [facility] 03-04-2024 09:09-0400 SaO2% (BldA) [Mass fraction] 100 % Yessi Jacobson APRN.PROOF OPERATOR Work Phone: [facility] 03-04-2024 09:09-0400 Systolic blood pressure 151 mm[Hg] Yessi Jacobson MANAGER CHILD.PROOF OPERATOR Work Phone: [facility] 12-02-2023 17:30-0400 Body height 165.1 cm Meghann Lundberg PA-C Work Phone: [facility] 12-02-2023 17:30-0400 Body temperature 98.49 [degF] Meghann Lundberg PA-C Work Phone: [facility] 12-02-2023 17:30-0400 Body weight 64.9 kg Meghann Lundberg PA-C Work Phone: [facility] 12-02-2023 17:30-0400 Diastolic blood pressure 70 mm[Hg] Meghann Wormald PA-C Work Phone: [facility] 12-02-2023 17:30-0400 Heart rate 74 /min Meghann Wormald PA-C Work Phone: [facility] 12-02-2023 17:30-0400 Respiratory rate 16 /min Meghann Wormald PA-C Work Phone: [facility] 12-02-2023 17:30-0400 SaO2% (BldA) [Mass fraction] 97 % Meghann Wormald PA-C Work Phone: [facility] 12-02-2023 17:30-0400 Systolic blood pressure 122 mm[Hg] Meghann Wormald PA-C Work Phone: [facility] Encounters Encounter Date Encounter Type Care Provider Facility Start: 05-01-2025 ambulatory Regina Khan Facility :[facility] Start: 04-12-2025 Encounter for gynecological examination (general) (routine) [facility] Start: 04-12-2025 End: 04-12-2025 Patient encounter procedure Regina HARRISC -[facility] Work Phone: Start: 04-12-2025 End: 04-12-2025 ambulatory No Primary Care Physician -[facility] Start: 04-12-2025 End: 04-12-2025 ambulatory No Primary Care Physician Facility:[facility] Start: 03-04-2024 End: 03-04-2024 ambulatory Facility:[facility] Start: 03-04-2024 End: 03-04-2024 Patient encounter procedure Yessi Jacobson APRN.CNP Work Phone: [facility] Comment on above: Dermatitis (Primary Dx) Start: 12-02-2023 End: 12-02-2023 ambulatory SELF Facility:[facility] Start: 12-02-2023 End: 12-02-2023 Patient encounter procedure Meghann Augustin Wormald PA-C Work Phone: [facility] Comment on above: Cellulitis of hand, left (Primary Dx) Start: 09-27-2023 End: 09-27-2023 ambulatory [facility] Work Phone: Start: 09-27-2023 End: 09-27-2023 Patient encounter procedure [facility] Start: 12-18-2022 Patient encounter procedure [facility] Procedures Date Procedure Procedure Detail Performing Clinician Start: 04-12-2025 Liquid based cervica l cytology screening No Primary Care Physician Comment on above: NEGATIVE FOR INTRAEP ITHELIAL LESION OR MALIGNANCY. This liquid based Th inPrep(R) pap test was screened withthe use of an image guided system. Plan of Treatment Date Care Activity Detail Author Start: 07-26-2031 Urine microalbumin profile DTaP,Tdap,Td Vaccine (2 - Td or Tdap) [facility] Start: 04-12-2025 T4 free measurement [facility] Start: 04-12-2025 [facility] Start: 05-14-2024 Influenza vaccination Influenz a Vaccine (Season Ended) [facility] Start: 09-13-2023 Behavioral Health Screening Behavioral Health Screening [facility] Start: 09-13-2023 Depression Assessment Depression Ass essment [facility] Start: 05-14-2023 Covid-19 Vaccine ( season) Covid-19 Vaccine ( season) [facility] Start: 05-14-2023 Influenza vaccination Influenza Vacc ine (#1) [facility] Start: 2014 Screening for malign ant neoplasm of cervix HPV Testing [facility] Start: 2005 Screening for malign ant neoplasm of cervix [facility] Start: 2003 Hepatitis B Vaccine (1 of 3 - 19+ 3-dose series) Hepatitis B Vaccine (1 of 3 - 19+ 3-dose series) [facility] Start: 2002 Hepatitis C screening Hepatitis C Sc reening [facility] Start: 2002 HIV screening HIV Screening [facility] Liquid based cervica l cytology screening [facility] MG Breast - bilatera l Screening [facility] Payers Date Payer Category Payer Self-pay [id number] 2019 Unknown MMO MMO [employer] PPO [id number] 2019-Present [phone] [address] [place] [address] PPO [id number] 2019 Unknown [id number] Unknown MED [employer] [place] [id number] Unknown [id number] Unknown [id number] Unknown [id number] Social History Date Type Detail Facility Start: 12-18-2022 Tobacco smoking stat us MIIS Unknown if ever smoked [facility] Start: 1985 Sex Assigned At Female [facility] Start: 11-06-2016 End: 03-19-2025 Tobacco smoking status NHIS Never smoked tobacco [facility] Start: 11-06-2016 Tobacco use and exposure Smokeless tobacco non-user [facility] Start: 11-06-2016 Alcohol intake Current non-dr fisher oyster of alcohol (finding) [facility] Start: 1985 Sex Assigned At Not on file [facility] Gender identity Not on file [facility] inic Clinical Notes 12-02-2023 to 04-12-2025 Note Date & Type Note Facility 04-12-2025 Evaluation note Diagnosis Onset Date Resolution Women's annual routine gynecological examination acute April 12, 2025 10:46am [facility] Work Phone: [phone] 412-957807-31-2025 [facility] [address] [place] [address], [address] [place] [address] OFFICE VISIT Date of Service: 04/12/25 MR#: [id number] Acct: [id number] Name: MIRZA GARCIA Rep #: [id number] : 1985 Provider: GILSON Khan Age/Sex: 39/F [place] [facility] Status: Signed Intake Vital Signs 03/28/24 14:58 03/19/25 08:43 04/12/25 10:48 Height 5 ft 5 in 5 ft 5 in 5 ft 5 in Weight: 142 lb 8 oz BMI 23.7 BP 135/88 H 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) Api Developer Required: No Is patient in pain?: No Allergies No Known Allergies Allergy (Verified 04/12/25 10:50) Medications ?Medication ?Instructions ?Recorded ?Confirmed ?Type multivitamin 1 tab PO DAILY 09/23/2103/15 History ascorbic acid 100 mg-elderberry tab PO 12/18/22 History fruit 50 mg chewable tablet (Airborne (elderberry)) drospiren-e.estrad-l.mefol 3 See Rx Instructions .Rout e 04/10/25 04/12/25 Rx mg-0.02 mg-0.451 mg(24)/0.451 .COMPLEX #84 tabs mg(4)tablet Is last menstrual period known: Yes Last Menstrual Period: 04/02/25 Post menopausal: No Patient : No : No Control Method: ocp PFSH Family History Unknown Colon cancer Kidney disease Grandfather Diabetes Social History Smoking Status: Never smoker alcohol intake: never substance use type: does not use caffeine: Yes what type of physical activity do you participate in: walking and aerobics frequency: 1-2 times per week seatbelt use: always do you feel safe at home: Yes additional social history: [employer]- Student 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 She reports no issuesor concerns. She isutilizing OCP an doing well with this. Would like to continue. She is interested in testosterone testing. Her mother is going throughtesting as well and they were questioning a genetic component. Otherwise asymptomatic. Last PAP: 2019; normal. HPV neg. History of abnormal PAP: no Last mammogram: due History of abnormal mammogram: n/a Colon cancer screening: age 44 Other preventative health care screenings: no PCP Female Reproductive History Last Menstrual Period: 04/02/25 Cycle Length: 21-35 Bleeding Duration: 3 Questions: metrorrhagia: No, sexually active: Yes, dyspareunia: No and PCB: No ROS Const Constitutional: Denies chills, fatigue, fever(s), headache(s) or weight loss Eyes Eyes: Denies change in vision ENT ENT: Denies dizziness Cardio Card: Denies chest pain at rest or palpitations Resp Resp: Denies cough or dyspnea GI GI: Denies abdominal pain, constipation or nausea : Denies difficulty voiding, dysuria, hematuria, nipple discharge, pelvic pain, prolapse symptoms, urinary incontinence, vaginal discharge, vaginal dryness, vaginal odor or vaginal pruritus Skin Skin/Breast: Denies alopecia, rash, breast mass, breast pain, breast skin changes or nipple discharge Neuro Neuro: Denies dizziness Psych Psych: Denies anxiety or depression Endo Endo: Denies cold intolerance, excessive sweating or heat intolerance Exam Const General: cooperative, healthy appearing, no acute distress and well developed Orientation: alert, oriented to person and oriented to place [facility] Head: normal to inspection Neck Neck: normal visual inspection Thyroid: thyroid normal Lymphatic: no lymphadenopathy noted Chest Breast inspection: normal inspection of the breasts and normal inspection of theaxillae Breast palpation: normal palpation of the breasts, normal palpation of the axillae and no axillary lymphadenopathy Resp Effort & Inspection: normal respiratory effort GI Palpation: soft, no masses and nontender Rectal Exam: deferred External Female Exam: normal external appearance and normal appearance of the urethra Urethra: normal appearance of the urethra and normal palpation Speculum Exam - Vagina: normal appearance of the vagina and normal vaginal discharge Speculum Exam - Cervix: normal appearance of the cervix Bimanual Exam- Vagina & Uterus: normal bimanual exam, uterine size normal, uterine shape normaland non-tender Bimanual Exam- Adnexa, other: normal adnexae, no masses, normal and non-tender Pelvic Support: normal Neuro General: patient alert and patient oriented x3 Psych Affect: normal affect Coding Level of Care Code Established Pt Off vis,est,prev 40-64yrs Patient Type Established Diagnoses Women's annual routine gynecological examination Z01.419 Assessment and Plan Assessment and Plan (1) Women's annual routine gynecological examination: Status: Acute Plan: Breast and pelvic exam complete. PAP due: completed today. Mammogram due: orders placed to obtain Advised self breast exams monthly. Contraception: OCP. Refills sent 04/10/25. Advised incorporating healthy dietary choices such as increase in lean meats, fruits/vegetables, less processed food/sat fat/trans fats. Increase exercise to 30 minutes per day/5 days a week. This can include both weight bearing exercisesand/or brisk walking. Follow up with PCP for further preventative health screenings. Orders placed to have testosterone checked. Call with results. 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 Call office sooner with questions or concerns. Orders: Orders PAP IG HPV APTIMA 16/18,45 Today Z12.4 - Encounter for screening for malignant neoplasm of cervix SCRN MAMM (CAD)W/[place] [facility] Today Z12.31 - Encounter for screening mammogram for malignant neoplasmof breast 04/12/25 1119 n MONEY LAUNDERING INVESTIGATOR-C> Date _ Regina Khan MONEY LAUNDERING INVESTIGATOR-C Cosigner Signature: Date (if applicable) CC: ~ [facility]06-22-2024 NoteHNO ID: [id number] Author: YESSI JACOBSON APRN.PROOF OPERATOR Service: ? Author Type: Nurse Practitioner Type: Progress Notes Filed: 03/04/2024 12:36 Note Text: This note was created using NoteWriter. Subjective Mirza Garcia is a 38 year old female. Patient presents with blisters on bilateral arms and neck for 2 days Complains of intense itching Review of Systems Constitutional: Negative for chills and fever. Objective BP 151/87 Pulse 65 Resp 16 Wt 63.5 kg (139 lb 14.1 oz) LMP 10/06/2016 SpO2 100% BMI 23.28 kg/m? Physical Exam Constitutional: General: She is not in acute distress. Appearance: Normal appearance. She is not toxic-appearing. Skin: Findings: Rash present. Neurological: Mental Status: She is alert. Assessment and Plan ASSESSMENT/PLAN: 1. Dermatitis - ICD9: 692.9, ICD10: L30.9 - Oral Steriod tx -Prednisone taper - Topical steriod tx with Rx for steriod cream/ointment- see orders - Anti itch therapy of antihistamine recommended prn - discussed skin care of rash - follow up if symptoms persist or worsen. - PREDNISONE 10 MG TABLET - TRIAMCINOLONE ACETONIDE 0.1 % TOPICAL CREAM [facility] Jacobson [facility]N.[facility] History of Present illness Narrative* Yessi Jacobson APRN.CNP - 03/04/2024 12:32 PM EDT Images from the original note were not included. This note was created using Medlanes. Subjective Mirza Garcia is a 38 year old female. Patient presents with blisters on bilateral arms and neck for 2 days Complains of intense itching Review of Systems Constitutional: Negative for chills and fever. Objective BP 151/87 Pulse 65 Resp 16 Wt 63.5 kg (139 lb 14.1 oz) LMP 10/06/2016 SpO2 100% BMI 23.28 kg/m Physical Exam Constitutional: General: She is not in acute distress. Appearance: Normal appearance. She is not toxic-appearing. Skin: Findings: Rash present. Neurological: Mental Status: She is alert. Assessment and Plan ASSESSMENT/PLAN: 1. Dermatitis - ICD9: 692.9, ICD10: L30.9 - Oral Steriod tx -Prednisone taper - Topical steriod tx with Rx for steriod cream/ointment- see orders - Anti itch therapy of antihistamine recommended prn - discussed skin care of rash - follow up if symptoms persist or worsen. - PREDNISONE 10 MG TABLET - TRIAMCINOLONE ACETONIDE 0.1 % TOPICAL CREAM Yessi Jacobson APRN.PROOF OPERATOR documented in this encounterNor[facility]06-[facility]24 Instructions* Patient Instructions* Yessi Jacobson APRN.CNP - 03/04/2024 9:34 AM EDT [facility] PATIENT INFO CONTACT DERMATITIS OVERVIEW Dermatitis is defined as an inflammation of the skin. Contact dermatitis refers to dermatitis that is caused by contact between the skin and a substance. The substance can be an allergen (a substancethat provokes an allergic reaction) or an irritant (a substance that damages the skin). Irritants are responsible for about 80 percent of cases of contact dermatitis. In most cases, self-care measures and drug therapy can control the symptoms and prevent complications of contact dermatitis. IRRITANT CONTACT DERMATITIS Irritant contact dermatitis occurs when the skin comes in direct contact with a substance that physically, mechanically, or chemically irritates the skin, causing the normal skin barrier to be disrupted. Cause -- The most common causes of irritant dermatitis are products used on a daily basis, including soap, cleansers, and rubbing alcohol. People with other skin conditions, dry skin, and light-colored or fair skin are at greatest risk, although anyone can develop irritant dermatitis. Symptoms -- Mild irritants cause redness, dryness, fissures (small cracks), and itching. Strong irritants may cause swelling, oozing, tenderness, or blisters. The hands are commonly affected, often between the fingers. Irritant dermatitis can also affect the face, especially the thin skin of the eyelids. Diagnosis -- The diagnosis of irritant contact dermatitis is usually based upon a person's history and physical examination. In some cases, a patch test (applying a small amount of a substance to theskin) may be recommended to determine if the dermatitis is allergic or irritant-type. Patch testingshould be done by a solar installation crew supervisor or efficiency manager who is trained in this procedure. Treatment -- The goal of treatment of irritant contact dermatitis is to restore the normal skin barrier and protect the skin from future injury. Reducing exposure to known irritants is essential. In some cases, simply reducing the use of soap and using an emollient cream or ointment completely alleviates symptoms. Wearing gloves when working with irritants may help as well. In more severe cases, topical corticosteroids (steroids) may be recommended. Steroid creams and ointments are available in a variety of strengths (potencies); the least potent are available in the [place] without a prescription (eg, hydrocortisone 1 percent cream). More potent formulations req uire a prescription. Steroid treatments for contact dermatitis are most effective when applied and covered with a barrier, such as plastic wrap, a dressing (eg, Telfa), cotton gloves, or petroleum jelly. Oral steroids (eg, prednisone) may be used briefly to treat severe dermatitis, but are not recommended for long-termtreatment of irritant contact dermatitis. ALLERGIC CONTACT DERMATITIS Allergic contact dermatitis occurs when the skin comes in direct contact with an allergen. This activates the body's immune system, which triggers inflammation. Allergic contact dermatitis can occur after being exposed to a new product or after using a product for months or years. Common allergens -- Poison vielka, poison oak, and poison sumac contain an oil called urushiol, which is the most common cause of allergic contact dermatitis. Ginkgo fruit and the skin of mangos also contain urushiol and can cause allergic contact dermatitis. Other common allergens include nickel in jewelry, perfumes and cosmetics, components of rubber, nail honduran, and chemicals in shoes (both leather and synthetic). Allergic contact dermatitis can also be triggered by certain medications, including hydrocortisone cream, antibiotic creams (eg, Neosporin , Bacitracin ), benzocaine, and thimerosal. Laundry detergents are an uncommon cause of allergic contact dermatitis. Symptoms -- Symptoms include intense itching and a red raised rash. The rash is usually limited to areas that were in direct contact with the allergen, but a rash can appear in other areas of the body, if the allergen was transferred to those areas on a person's hands. Washing the allergen away with soap and water can usually prevent this spread. The rash typically appears within 12 to 48 hours of exposure to the allergen, although in some cases it may not appear for up to two weeks. Less commonly, the rash persists for months or years, whichmakes it difficult to identify the cause of the reaction. Diagnosis -- The diagnosis of allergic contact dermatitis is based upon a person's history and physical examination. If symptoms improve after the allergen is eliminated, this supports the diagnosis.Patch testing may be recommended in some cases and is usually performed by a solar installation crew supervisor or allerg ist. Treatment -- Allergic contact dermatitis usually resolves within two to four weeks after the allergen is eliminated, although it can take more time in some cases. Several measures can minimize symptoms during this time and help to control symptoms in people who have chronic allergic contact dermatitis. Whenever possible, identify and stop all exposure to the allergen. Oatmeal baths or soothing lotions such as calamine lotion can provide relief in mild cases. Topical antihistamines (eg, Benadryl cream) may be effective in some people. Topical corticosteroids (steroids) may be recommended for people with mild to moderate symptoms. Steroid creams and ointments are available in a variety of strengths (potencies); the least potent areavailable in the [place] without a prescription (eg, hydrocortisone 1 percent cream). More potent formulations require a prescription. For people with more bothersome symptoms, wet or damp dressings are recommended, especially when the affected area is oozing fluid and crusting. Such dressings are soothing and relieve itching, reduce redness, gently remove crusts, and prevent additional injury from scratching. A damp cotton garment (the garment is soaked with water and then wrung out) is worn over the affected area and covered with a dry garment. As an example, for an adult with allergic contact dermatitisof the legs, wet long underwear can be covered with larger dry long underwear. Adults may prefer toapply wet dressings at night. When used during the day, wet dressings should be changed every eight hours. Infants and toddlers with extensive skin involvement can wear wet pajamas covered by a dry pair of pajamas or a sleep sack. In people with severe dermatitis, a short course of oral steroids (eg, prednisone) may be recommended to get symptoms under control. LATEX DERMATITIS Latex is a fluid produced by rubber trees that is processed into a variety of products, including gloves, balloons, and condoms. In some individuals, exposure to these products and others (such as rubber bands, erasers, feeding nipples, pacifiers) can cause a contact dermatitis that is either an irritant or allergic reaction. Less commonly, a person can develop a potentially life-threatening allergic reaction to latex. Irritant dermatitis -- Irritant dermatitis usually occurs on the hands of people who wear latex or other rubber gloves; the latex acts as an irritant and the gloves trap moisture against the skin. The skin dries out when the gloves are removed, leading to the dermatitis. The symptoms of irritant rubber or latex dermatitis include redness and itching on the skin. There may also be dryness and cracking. Symptoms usually occur within 12 to 36 hours of touching a latex product. Treatment involves avoiding use of any latex-containing products. Latex allergy -- Latex can trigger allergic contact dermatitis. The skin reaction caused by a latexallergy does not differ significantly from that of irritant latex dermatitis. Other manifestations of latex allergy include urticaria (hives) immediately after contact with latex at the site of contact and a severe allergic reaction, which causes swelling, sneezing, and wheezing. Rarely, anaphylaxis can occur, which causes life-threatening difficulty with breathing. Diagnosis -- In most cases, the diagnosis of latex allergy is based upon a person's history of exposure. People with a severe latex allergy may immediately develop hives, nasal symptoms, swelling, or wheezing after latex exposure. These individuals may need to see a solar installation crew supervisor or efficiency manager for specialized skin patch tests and blood testing to verify the latex allergy. Treatment -- The primary treatment for latex allergy is to avoid all latex- containing products. Non-latex examination gloves are widely available, and use of glove liners may also be an effective approach. Natural membrane (sometimes called sheep skin) condoms may be used in place of latex condoms, and are effective for preventing . However, natural membrane condoms do not protect against sexually transmitted diseases such as HIV, gonorrhea, and chlamydia. People with a serious latex allergy should wear a bracelet, necklace, or similar alert tag at all times. If a reaction occurs and the person is too ill to explain their condition, this will help responders provide the proper care as quickly as possible. This measure is especially important in children. The alert tag should include a list of known allergies, as well as the name and phone number ofan emergency contact. People with a latex allergy should inform their doctors, dentists, and other healthcare providers about their allergy. Some patients are advised to carry an anaphylaxis kit (containing epinephrine that can be injected under the skin) as a precautionary measure. documented in this encounterNor[facility]03-21-2024 Instructions* Patient Instructions* Meghann Lundberg PA-C - 12/02/2023 5:45 PM EDT [facility] PATIENT INFO SKIN INFECTION OVERVIEW Cellulitis is an infection of the skin and soft tissue of the skin. The infection is usually causedby bacteria that normally live on the skin, such as staphylococci (Staph) or streptococci (Strep). The infection develops when there is a break in the skin, such as a wound or injury, which may be minor. This allows bacteria to enter the skin and grow, causing infection and swelling. Most cases of cellulitis are mild and heal completely with antibiotic treatment. However, the infection can become severe and cause a bodywide infection if left untreated. It is important to seek medical care promptly if you could have a skin infection. SKIN INFECTION RISK FACTORS Certain conditions increase the risk of developing cellulitis. These include: Recent injury to the skin (a wound, abrasion, cut, recent shaving, or injection drug use) Swelling of the skin due to radiation therapy Current skin infection, such as athlete's foot or impetigo Accumulation of fluid (edema) due to poor circulation, heart failure, liver disease, or past surgery to remove lymph nodes Being overweight Chronic skin conditions, such as eczema or psoriasis However, cellulitis can also develop in people who have no known risk factors. SKIN INFECTION SYMPTOMS Cellulitis -- The most common symptom of cellulitis is pain or tenderness. Other cellulitis symptoms can include swelling, warmth, and redness in a distinct area of skin. These symptoms usually worsen and the redness may expand over the course of a few days. The skin is usually smooth and shiny rather than raised or bumpy. Fever and chills are not common. The most common areas of the body for cellulitis to develop include the legs and the arms; it can also develop around the eye, on the abdominal wall, in the mouth, and around the anus. Other skin infections -- Other types of skin infections include abscesses, furuncles (boils), andcarbuncles. These usually cause a collection of pus under the skin. Skin that is raised, reddened, tender, and pus-filled may be caused by a skin infection known as methicillin-resistant Staphylococcus aureus (MRSA). DO I NEED TO BE EXAMINED? There are many types and causes of skin infections, and it is important to know the most likely cause of the infection before beginning treatment. Using the wrong treatment could allow the infection to worsen. To ensure that the correct treatment is used, it is important to be evaluated by a healthcare provider. SKIN INFECTION TREATMENT Cellulitis treatment includes antibiotics as well as treatment of any underlying condition that ledto the skin infection. Elevate the area -- Elevating the arm or leg above the level of the heart can help to reduce swelling and speed healing. Keep the area clean and dry -- It is important to keep the infected area clean and dry. You can shower or bathe normally, and pat the area dry with a clean towel. You can use a bandage or gauze to protect the skin, if needed. Do not use any antibiotic ointments or creams. Antibiotics -- Most people with cellulitis are treated with an antibiotic that is taken by mouth for one to two weeks. The best antibiotic depends upon your situation. If the infection is severe, you may need to be hospitalized and treated with antibiotics given intoa vein (IV). It is important to take the antibiotic exactly as recommended and to finish the entire course of treatment. Skipping doses or ending treatment early could potentially allow the bacteria to become resistant and require longer treatment. Time to heal -- The swelling, warmth, and redness should begin to improve within one to three days after starting antibiotics, although these symptoms can persist for two weeks. If the reddened area becomes larger, more swollen, or more tender, call your healthcare provider. He or she may want to reexamine you to determine if further testing or an alternate antibiotic are needed. SKIN INFECTION PROGNOSIS In most cases, you will recover completely from an episode of cellulitis without any complications.If you have skin infection risk factors talk to your healthcare provider to determine if there are steps you can take to minimize the risk of infections in the future. documented in this encounterNorwalk [facility]03-21-2024 NoteHNO ID: [id number] Author: MEGHANN LUNDBERG PA-C Service: ? Author Type: Physician Electrical Electronics Engineer Type: Progress Notes Filed: 12/02/2023 17:51 Note Text: Barrington Garcia is a 38 year old female with no significant past medical history who presents [facility] today for evaluation of a red spot on the left side of her hand that she noticed yesterday. She states that it has been getting significantly larger and tender. She states that it feels warm. She denies any injury or trauma. Review of Systems Constitutional: Negative for chills, diaphoresis and fever. Skin: Positive for wound (left hand red spot). All other systems reviewed and are negative. Objective Ht 165.1 cm (5' 5) Wt 64.9 kg (143 lb 1.3 oz) LMP 10/06/2016 BMI 23.81 kg/m? Physical Exam Vitals reviewed. Constitutional: General: She is not in acute distress. Appearance: Normal appearance. She is normal weight. She is not ill-appearing or toxic-appearing. Comments: The patient appears to be non-toxic, in no acute distress, and resting comfortably on the table. HENT: Head: Normocephalic and atraumatic. Eyes: Extraocular Movements: Extraocular movements intact. Musculoskeletal: General: Normal range of motion. Cervical back: Normal range of motion. Skin: General: Skin is warm and dry. Findings: Erythema (3 cm x 2 cm area on the medial left hand with central 1 cm x 1 cm darker, mildly indurated area) present. No rash. Neurological: General: No focal deficit present. Mental Status: She is alert and oriented to person, place, and time. Mental status is at baseline. Psychiatric: Mood and Affect: Mood normal. Behavior: Behavior normal. Thought Content: Thought content normal. Assessment and Plan Examination of the left hand reveals a 3 cm x 2 cm area on the medial left hand with a central 1 cm x 1 cm darker, mildly indurated area. There is mild tenderness. No fluctuance. No drainage. Exam is concerning for cellulitis. Patient counseled regarding suspected diagnosis and given prescription for Keflex. Advised to follow-up with primary care as needed for any new or worsening symptoms. ASSESSMENT/PLAN: 1. Cellulitis of hand, left - ICD9: 682.4, ICD10: L03.114 - CEPHALEXIN 500 MG CAPSULE Medical Decision Making: Problems: Low: Acute, uncomplicated illness or injury Risk: Minimal: Minimal risk from testing/treatment Moderate: Drug management Medical Decision Making Level: 3 - Low I spent a total of 20 minutes on the date of the service which included preparing to see the patient, [id number] patient care, completing clinical documentation, performing a medically appropriate examination, counseling and educating the patient/family/caregiver, and ordering medications, tests, or procedures. [facility]03[facility] History of Present illness Narrative* Meghann Lundberg PA-C - 12/02/2023 5:31 PM EDT Subjective Mirza Garcia is a 38 year old female with no significant past medical history who presents [facility] today for evaluation of a red spot on the left side of her hand that she noticed yesterday. Shestates that it has been getting significantly larger and tender. She states that it feels warm. Shedenies any injury or trauma. Review of Systems Constitutional: Negative for chills, diaphoresis and fever. Skin: Positive for wound (left hand red spot). All other systems reviewed and are negative. Objective Ht 165.1 cm (5' 5) Wt 64.9 kg (143 lb 1.3 oz) LMP 10/06/2016 BMI 23.81 kg/m Physical Exam Vitals reviewed. Constitutional: General: She is not in acute distress. Appearance: Normal appearance. She is normal weight. She is not ill-appearing or toxic-appearing. Comments: The patient appears to be non-toxic, in no acute distress, and resting comfortably on thetable. HENT: Head: Normocephalic and atraumatic. Eyes: Extraocular Movements: Extraocular movements intact. Musculoskeletal: General: Normal range of motion. Cervical back: Normal range of motion. Skin: General: Skin is warm and dry. Findings: Erythema (3 cm x 2 cm area on the medial left hand with central 1 cm x 1 cm darker, mildly indurated area) present. No rash. Neurological: General: No focal deficit present. Mental Status: She is alert and oriented to person, place, and time. Mental status is at baseline. Psychiatric: Mood and Affect: Mood normal. Behavior: Behavior normal. Thought Content: Thought content normal. Assessment and Plan Examination of the left hand reveals a 3 cm x 2 cm area on the medial left hand with a central 1 cmx 1 cm darker, mildly indurated area. There is mild tenderness. No fluctuance. No drainage. Exam isconcerning for cellulitis. Patient counseled regarding suspected diagnosis and given prescription for Keflex. Advised to follow-up with primary care as needed for any new or worsening symptoms. ASSESSMENT/PLAN: 1. Cellulitis of hand, left - ICD9: 682.4, ICD10: L03.114 - CEPHALEXIN 500 MG CAPSULE Medical Decision Making: Problems: Low: Acute, uncomplicated illness or injury Risk: Minimal: Minimal risk from testing/treatment Moderate: Drug management Medical Decision Making Level: 3 - Low I spent a total of 20 minutes on the date of the service which included preparing to see the patient, [id number] patient care, completing clinical documentation, performing a medically appropriate examination, counseling and educating the patient/family/caregiver, and ordering medications, tests,or procedures. Meghann Lundberg PA-C documented in this encounterSum[facility]usalubay[facility] noteNo assessment information availableWCleveland Clinic [facility] Work Phone: Evaluation note* Diagnosis Cellulitis of hand, left- Primary Cellulitis and abscess of hand, except fingers and thumb documented [facility] encounter [facility]* Diagnosis Dermatitis- Primary Contact dermatitis and other eczema, due to unspecified cause documented in this encounter [facility]* Diagnosis Onset Date Resolution Status Admit Date Women's annual routine gynecological examination acute March 152024 10:46am [facility] Work Phone: Progress note Author Regina Khan [facility] Note Date/Time April 12, 2025 11:1 9am [facility] [address] [place] [address], [address] [place] [address] OFFICE VISIT Date of Service: 04/12/25 MR#: [id number] Acct: [id number] Name: MIRZA GARCIA Rep #: [id number] : 1985 Provider: GILSON Kahn Age/Sex: 39/F [place] [facility] [place]: Signed Intake Vital Signs 03/28/24 14:58 03/19/25 08:43 04/12/25 10:48 Height 5 ft 5 in 5 ft 5 in 5 ft 5 in Weight: 142 lb 8 oz BMI 23.7 BP 135/88 H 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) Api Developer Required: No Is patient in pain?: No Allergies No Known Allergies Allergy (Verified 04/12/25 10:50) Medications ?Medication ?Instructions ?Recorded ?Confirmed ?Type multivitamin 1 tab PO DAILY 09/23/2103/15 History ascorbic acid 100 mg-elderberry tab PO 12/18/22 History fruit 50 mg chewable tablet (Airborne (elderberry)) drospiren-e.estrad-l.mefol 3 See Rx Instructions .Rout e 04/10/25 04/12/25 Rx mg-0.02 mg-0.451 mg(24)/0.451 .COMPLEX #84 tabs mg(4)tablet Is last menstrual period known: Yes Last Menstrual Period: 04/02/25 Post menopausal: No Patient : No : No Control Method: ocp PFSH Family History Unknown Colon cancer Kidney disease Grandfather Diabetes Social History Smoking Status: Never smoker alcohol intake: never substance use type: does not use caffeine: Yes what type of physical activity do you participate in: walking and aerobics frequency: 1-2 times per week seatbelt use: always do you feel safe at home: Yes additional social history: [employer]- Student 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 She reports no issuesor concerns. She is utilizing OCP an doing well with this. Would like to continue. She is interested in testosterone testing. Her mother is going throughtesting as well and they were questioning a genetic component. Otherwise asymptomatic. Last PAP: 2019; normal. HPV neg. History of abnormal PAP: no Last mammogram: due History of abnormal mammogram: n/a Colon cancer screening: age 44 Other preventative health care screenings: no PCP Female Reproductive History Last Menstrual Period: 04/02/25 Cycle Length: 21-35 Bleeding Duration: 3 Questions: metrorrhagia: No, sexually active: Yes, dyspareunia: No and PCB: No ROS Const Constitutional: Denies chills, fatigue, fever(s), headache(s) or weight loss Eyes Eyes: Denies change in vision ENT ENT: Denies dizziness Cardio Card: Denies chest pain at rest or palpitations Resp Resp: Denies cough or dyspnea GI GI: Denies abdominal pain, constipation or nausea : Denies difficulty voiding, dysuria, hematuria, nipple discharge, pelvic pain, prolapse symptoms, urinary incontinence, vaginal discharge, vaginal dryness, vaginal odor or vaginal pruritus Skin Skin/Breast: Denies alopecia, rash, breast mass, breast pain, breast skin changes or nipple discharge Neuro Neuro: Denies dizziness Psych Psych: Denies anxiety or depression Endo Endo: Denies cold intolerance, excessive sweating or heat intolerance Exam Const General: cooperative, healthy appearing, no acute distress and well developed Orientation: alert, oriented to person and oriented to place HENCO Head: normal to inspection Neck Neck: normal visual inspection Thyroid: thyroid normal Lymphatic: no lymphadenopathy noted Chest Breast inspection: normal inspection of the breasts and normal inspection of theaxillae Breast palpation: normal palpation of the breasts, normal palpation of the axillae and no axillary lymphadenopathy Resp Effort & Inspection: normal respiratory effort GI Palpation: soft, no masses and nontender Rectal Exam: deferred External Female Exam: normal external appearance and normal appearance of the urethra Urethra: normal appearance of the urethra and normal palpation Speculum Exam - Vagina: normal appearance of the vagina and normal vaginal discharge Speculum Exam - Cervix: normal appearance of the cervix Bimanual Exam- Vagina & Uterus: normal bimanual exam, uterine size normal, uterine shape normal and non-tender Bimanual Exam- Adnexa, other: normal adnexae, no masses, normal and non-tender Pelvic Support: normal Neuro General: patient alert and patient oriented x3 Psych Affect: normal affect Coding Level of Care Code Established Pt Off vis,est,prev 40-64yrs Patient Type Established Diagnoses Women's annual routine gynecological examination Z01.419 Assessment and Plan Assessment and Plan (1) Women's annual routine gynecological examination: Status: Acute Plan: Breast and pelvic exam complete. PAP due: completed today. Mammogram due: orders placed to obtain Advised self breast exams monthly. Contraception: OCP. Refills sent 04/10/25. Advised incorporating healthy dietary choices such as increase in lean meats, fruits/vegetables, less processed food/sat fat/trans fats. Increase exercise to 30 minutes per day/5 days a week. This can include both weight bearing exercisesand/or brisk walking. Follow up with PCP for further preventative health screenings. Orders placed to have testosterone checked. Call with results. 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 Call office sooner with questions or concerns. Orders: Orders PAP IG HPV APTIMA 16/18,45 Today Z12.4 - Encounter for screening for malignant neoplasm of cervix [facility] MAMM (CAD)W/[facility] Today Z12.31 - Encounter for screening mammogram for malignant neoplasm of breast 04/12/25 1119 <Electronically signed by Regina RIGGINS> Date _ Regina RIGGINS Cosigner Signature: Date (if applicable) CC: ~ [facility] Work Phone: Reason for referral (narrative)No reason for referral information availableBlChildren[facility] Work Phone: Family History No Family History Records Found Relationship Condition Age at Onset Recorded Date/T basilia Not Specified Malignant neoplasm of colon Unknown Kidney disorder Unknown grandfather Diabetes mellitus Unknown Relationship Condition Age at Onset Recorded Date/T basilia unrelated friend Malignant neoplasm of colon Unknown Kidney disorder Unknown grandfather Diabetes mellitus Unknown Summary Purpose Advance Directives No Advanced Directives Records FoundNo Advanced Directives Records Found Chief Complaint and Reason for Visit Chief Complaint Admit Date 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) April 12, 2025 10:4 6am Reason for Visit Admit Date Women's annual routine gynecological exa mination April 12, 2025 10:46am Additional Source Comments Care Teams (unrecognized sec tion and content) Team Status: Active Member Role Status Dates No Primary Care Physician Primary Care Provider Active Team Status: Inactive Member Role Status Dates No Primary Care Physician Primary Care Provider Active Abigail Ardon CNM Attending Provider, Referring Pro vider Active Team Status: Active Member Role/Relationship Status Dates No Primary Care Physician Primary Care Provider Active Team Status: Inactive Member Role/Relationship Status Dates No Primary Care Physician Primary Care Provider Active Start: April 12, 2025 End: April 12, 2025 No Primary Care Physician Referring Provider Active Start: April 12, 2025 End: April 12, 2025 GILSON Styles Attending Provider Active Start: April 12, 2025 End: April 12, 2025 Team Status: Active Member Role/Relationship Status Dates No Primary Care Physician Primary Care Provider Active Start: April 12, 2025 GILSON Styles Attending Provider Active Start: April 12, 2025 Team Status: Inactive Member Role/Relationship Status Dates No Primary Care Physician Primary Care Provider Active Start: April 12, 2025 End: April 12, 2025 GILSON Styles Attending Provider Active Start: April 12, 2025 End: April 12, 2025 Goals (unrecognized section and content) Goals may be documented in a n alternate sectionGoals may be documented in an alternate sectionGoals may be documented in an alternate section Source Comments (unrecognize d section and content) In the event this informatio n is protected by the Federal Confidentiality of Alcohol and Drug Abuse Patient Records regulations: The Federal rules restrict any use of the information to criminally investigate or prosecute any alcohol or drug abuse patient.[facility] the event this information is protected by the Federal Confidentiality of Alcohol and Drug Abuse Patient Records regulations: The Federal rules restrict any use of the information to criminally investigate or prosecute any alcohol or drug abuse patient.[facility] Reason for Visit (unrecogniz ed section and content) Reason Comments Musculoskeletal Problem Has red spot on hand, happened yesterday morning. Feels warm Reason Comments Rash Has blistered all ov er arms, started INFORMATION SOURCE (unrecogn ized section and content) DATE CREATED AUTHOR 03/05/2024 [facility] DATE CREATED AUTHOR AUTHOR'S ORGANIZ ATION 05/01/2025 [facility] FOR RECORDS PERTAINING TO PATIENTS WHO ARE OR HAVE BEEN ENROLLED IN A CHEMICAL DEPENDENCY/SUBSTANCEABUSE PROGRAM, SOME INFORMATION MAY BE OMITTED. This clinical summary was aggregated from multiple sources. Caution should be exercised in using it in the provision of clinical care. This summary normalizes information from multiple sources, and as a consequence, information in this document may materially change the coding, format and clinical context of patient data. In addition, data may be omitted in some cases. CLINICAL DECISIONS SHOULD BE BASED ON THE PRIMARY CLINICAL RECORDS. [facility] [employer] [facility]. provides no warranty or guarantee of the accuracy or completeness of information in this document.
== END | disposition home or self-care (01) ==
LOC: OPBI 05-02 07:23
PROVIDERS: Referring Provider Nurse Practitioner Family; Visit Provider Nurse Practitioner Family
DX: Z12.31 Encounter for screening mammogram for malignant neoplasm of breast (principal)
CPT/HCPCS: 77063; 77067